=== PATIENT | male | born 1980 | race Caucasian/White ===

== ENCOUNTER 2017-04-18 15:17 | Emergency (ER) | payer OTHER | END 2017-04-18 19:19 | disposition home or self-care (01) | LOC: FER 15:17 | DX: S23.3XXA Sprain of ligaments of thoracic spine, initial encounter (principal); E11.9 Type 2 diabetes mellitus without complications; I10 Essential (primary) hypertension; E78.5 Hyperlipidemia, unspecified; Z79.4 Long term (current) use of insulin; Z79.899 Other long term (current) drug therapy; W10.9XXA Fall (on) (from) unspecified stairs and steps, initial encounter; Y92.009 Unspecified place in unspecified non-institutional (private) residence as the place of occurrence of the external cause | CPT/HCPCS: 71020; 72072; 99283 ==